=== PATIENT | female | born 1945 | race Caucasian/White ===

== ENCOUNTER 2024-11-24 05:16 | Day surgery (SDC) | payer OTHER, MEDICAID ==
[~2024-11-24] VITALS: Ht 147.3 cm; Wt 59.5 kg
[2024-11-24] MEDS ORDERED: MOXIFLOXACIN HCL 0.5% 3 ML OPHTHALMIC SOLUTION ONE (05:29)
[2024-11-24] MEDS ORDERED: TROPICAMIDE 1% 2 ML OPHTHALMIC SOLUTION ONE (05:29)
[2024-11-24] MEDS ORDERED: KETOROLAC TROMETHAMINE 0.5% 5 ML OPHTHALMIC SOLUTION ONE (05:29)
[2024-11-24] MEDS ORDERED: PHENYLEPHRINE HCL 2.5% 2 ML OPHTHALMIC SOLUTION ONE (05:30)
[2024-11-24] MEDS ORDERED: RINGERS SOLUTION,LACTATED 500 ML IV ONE (05:30)
[2024-11-24] MEDS ORDERED: TETRACAINE HCL/PF 0.5% 4 ML OPHTHALMIC SOLUTION ONE (05:33)
[2024-11-24] MEDS: TETRACAINE HCL/PF 0.5% 4 ML OPHTHALMIC SOLUTION OD ONE (05:57)
[2024-11-24] MEDS: RINGERS SOLUTION,LACTATED 500 ML IV ONE (06:08)
[2024-11-24] MEDS: PHENYLEPHRINE HCL 2.5% 2 ML OPHTHALMIC SOLUTION OD SCH (06:09)
[2024-11-24] MEDS: TROPICAMIDE 1% 2 ML OPHTHALMIC SOLUTION OD SCH (06:09)
[2024-11-24] MEDS: MOXIFLOXACIN HCL 0.5% 3 ML OPHTHALMIC SOLUTION OD SCH (06:09)
[2024-11-24] MEDS: KETOROLAC TROMETHAMINE 0.5% 5 ML OPHTHALMIC SOLUTION OD SCH (06:09)
[2024-11-24] MEDS ORDERED: CHOL200059 PO (06:34)
[2024-11-24] MEDS ORDERED: AMIT75TA2 PO (06:34)
[2024-11-24] MEDS ORDERED: LORA10TA7 PO (06:34)
[2024-11-24] MEDS ORDERED: TRAZ-257 PO (06:34)
[2024-11-24] MEDS ORDERED: ACET-66 PO (06:34)
[2024-11-24] MEDS ORDERED: FAMO20 PO (06:34)
[2024-11-24] MEDS ORDERED: NINT100C PO (06:34)
[2024-11-24] MEDS ORDERED: OS500 PO (06:34)
[2024-11-24] MEDS ORDERED: MONT-35 PO (06:34)
[2024-11-24] MEDS ORDERED: IRBE150T34 PO (06:34)
[2024-11-24] MEDS ORDERED: DOCU-412 PO (06:34)
[2024-11-24] MEDS ORDERED: CYAN250T3 PO (06:34)
[2024-11-24] MEDS ORDERED: SENN-374 PO (06:34)
[2024-11-24] MEDS: EPINEPHrine 1:1,000 [1 MG/ML] VIAL ONE (07:20)
[2024-11-24] MEDS: TETRACAINE HCL/PF 0.5% 4 ML OPHTHALMIC SOLUTION ONE (07:20)
[2024-11-24] MEDS: BALANCED SALT 15 ML OPHTHALMIC IRRIG.SOLN ONE (07:20)
[2024-11-24] MEDS: LIDOCAINE/PF 1% 2 ML VIAL ONE (07:20)
[2024-11-24] MEDS: POVIDONE-IODINE 5% 30 ML OPHTHALMIC SOLUTION ONE (07:20)
[2024-11-24] MEDS ORDERED: FentaNYL CITRATE PF 100 MCG/2 ML VIAL IVP ONE (12:00)
[2024-11-24] MEDS ORDERED: MIDAZOLAM HCL 2 MG/2 ML VIAL IVP ONE (12:00)
== END 2024-11-24 09:05 | disposition home or self-care (01) ==
LOC: SURGERY 05:16
PROVIDERS: ATTEND Ophthalmology
DX: H25.11 Age-related nuclear cataract, right eye (principal); J44.9 Chronic obstructive pulmonary disease, unspecified; Z90.49 Acquired absence of other specified parts of digestive tract; M81.0 Age-related osteoporosis without current pathological fracture; Z86.73 Personal history of transient ischemic attack (TIA), and cerebral infarction without residual deficits; Z88.8 Allergy status to other drugs, medicaments and biological substances; Z79.899 Other long term (current) drug therapy; Z90.710 Acquired absence of both cervix and uterus
CPT/HCPCS: 66984; 93005; J0171; J3010; J3490; J2250; J7120; V2632